=== PATIENT | male | born 1985 | race Caucasian/White ===

== ENCOUNTER 2021-02-07 13:05 | Emergency (ER) | payer OTHER ==
[~2021-02-07] VITALS: Ht 182.9 cm; Wt 86.3 kg
[2021-02-07] MEDS ORDERED: NOHOMEMEDICATIONS (13:12)
[2021-02-07 13:56] LABS: HEMATOCRIT 44.5 % (42.0-52.0); HEMOGLOBIN 14.5 gm/dL (14.0-18.0); MCH 28.7 pg (26.0-34.0); MCHC 32.6 g/dL (28.0-37.0); MCV 87.9 fL (80.0-100.0); MPV 8.3 fl. (7.2-11.1); RBC 5.06 mil/uL (4.50-6.00); RDW-CV 16.9 % (10.5-14.5); WBC 9.6 thou/uL (4.0-11.0)
[2021-02-07 14:03] LABS: CREATININE 0.8 mg/dL (0.6-1.3)
[2021-02-07 15:49] VITALS: BP 115/74
== END 2021-02-07 15:56 | disposition home or self-care (01) ==
LOC: M.ERS 13:05
PROVIDERS: Emergency Medicine Emergency Medical Services
DX: F10.920 Alcohol use, unspecified with intoxication, uncomplicated (principal); Y90.9 Presence of alcohol in blood, level not specified